=== PATIENT | female | born 1970 | race Caucasian/White ===

== ENCOUNTER 2021-06-24 04:10 | Emergency (ER) | payer MEDICAID ==
[~2021-06-24] VITALS: Ht 162.6 cm; Wt 89.1 kg
[2021-06-24] MEDS ORDERED: METF-960 PO (04:22)
[2021-06-24] MEDS ORDERED: TRIA50CA3 PO (04:22)
[2021-06-24] MEDS ORDERED: AMLO2.5T96 PO (04:22)
[2021-06-24] MEDS ORDERED: LISI-892 PO (04:22)
[2021-06-24] MEDS ORDERED: LIDOCAINE 5% TRANSDERMAL PATCH TD ONE (05:00)
[2021-06-24] MEDS ORDERED: KETOROLAC TROMETHAMINE 30 MG/ML VIAL IM ONE (05:00)
[2021-06-24] MEDS ORDERED: CYCLOBENZAPRINE HCL 10 MG TABLET PO ONE (05:00)
[2021-06-24 06:16] VITALS: BP 142/54
== END 2021-06-24 06:30 | disposition home or self-care (01) ==
LOC: EMS 04:10
DX: M54.5 Low back pain (principal); G89.29 Other chronic pain; J45.909 Unspecified asthma, uncomplicated; E11.9 Type 2 diabetes mellitus without complications; F17.210 Nicotine dependence, cigarettes, uncomplicated; Z79.899 Other long term (current) drug therapy; Z88.5 Allergy status to narcotic agent
CPT/HCPCS: 82962; 96372; 99283; J1885

== ENCOUNTER 2021-06-28 18:11 | Emergency (ER) | payer MEDICAID ==
[~2021-06-28] VITALS: Ht 162.6 cm; Wt 88.2 kg
[~2021-06-28 18:11] MED LIST: AMLO2.5T96 PO; LISI-892 PO; METF-960 PO; TRIA50CA3 PO
[2021-06-28 18:40] LABS: GLUCOMETER DEV NAME(LOC) AHU.; GLUCOSE,POINT OF CARE 214 MG/DL (70-110)
[2021-06-28 22:28] VITALS: BP 127/84
[2021-06-28] MEDS ORDERED: KETOROLAC TROMETHAMINE 30 MG/ML VIAL IM ONE (22:45)
[2021-06-28] MEDS ORDERED: ACETAMINOPHEN 500 MG TABLET PO ONE (22:45)
== END 2021-06-28 23:12 | disposition home or self-care (01) ==
LOC: EMS 18:11
DX: G57.02 Lesion of sciatic nerve, left lower limb (principal); Z88.5 Allergy status to narcotic agent; E11.9 Type 2 diabetes mellitus without complications
CPT/HCPCS: 82962; 96372; 99283; J1885